=== PATIENT | female | born 1955 | race Two or more races ===

== ENCOUNTER 2020-07-29 09:15 | Inpatient (IN) | payer OTHER ==
[~2020-07-29] VITALS: Ht 165.1 cm; Wt 1108.6 kg
[2020-07-29] MEDS ORDERED: ZESTRIL2.5 MG PO (13:35)
[2020-07-29] MEDS ORDERED: OMEPRAZ PO (13:36)
[2020-07-29] MEDS ORDERED: SIMVASTA PO (13:36)
[2020-08-05] MEDS ORDERED: SIMVASTATIN20 MG (13:35)
[2020-08-05] MEDS ORDERED: OMEPRAZOLE20 M1 (13:35)
[2020-08-08] MEDS ORDERED: ULTRACET PO (14:03)
[2020-08-08] MEDS ORDERED: HYOSCYAMINE0.125 M1 SL (14:04)
[2020-08-08] MEDS ORDERED: INTESTINEX680 M1 PO (14:04)
== END 2020-08-08 18:34 | disposition home or self-care (01) | DRG 331 ==
LOC: SURH 08-05 09:15 → O/R 08-05 09:15 → SURH 08-05 12:00
PROVIDERS: ADMIT Surgery; ATTEND Surgery
PROC: 0DBN4ZZ Excision of Sigmoid Colon, Percutaneous Endoscopic Approach (ICD-10-PCS; 2020-08-05)
PROC: 0DJD8ZZ Inspection of Lower Intestinal Tract, Via Natural or Artificial Opening Endoscopic (ICD-10-PCS; 2020-08-05)
PROC: 0DTP4ZZ Resection of Rectum, Percutaneous Endoscopic Approach (ICD-10-PCS; principal; 2020-08-05 12:00)
DX: K57.30 Diverticulosis of large intestine without perforation or abscess without bleeding (principal); I10 Essential (primary) hypertension; E78.5 Hyperlipidemia, unspecified